=== PATIENT | female | born 1990 | race Caucasian/White ===

== ENCOUNTER 2021-05-17 18:08 | Emergency (ER) | payer BC, MEDICAID ==
[~2021-05-17] VITALS: Ht 165.1 cm; Wt 54.4 kg
[2021-05-17 18:08] VITALS: BP_SYST 156
[2021-05-17] MEDS ORDERED: NACL 0.9% 1,000 ML IV ONE (18:15)
[2021-05-17] MEDS ORDERED: NALO0.4V2 INJ (19:52)
[2021-05-17 19:59] VITALS: BP_SYST 149
== END 2021-05-17 19:59 | disposition home or self-care (01) ==
LOC: SED 18:08
DX: T40.411A Poisoning by fentanyl or fentanyl analogs, accidental (unintentional), initial encounter (principal); Z79.899 Other long term (current) drug therapy; Y92.89 Other specified places as the place of occurrence of the external cause
CPT/HCPCS: 71045; 81025; 93005; 96360; 99283; J7030